=== PATIENT | female | born 1940 | race Caucasian/White ===

== ENCOUNTER → 2016-09-11 | Outpatient (CLI) | payer OTHER | LOC: MMPC 09:00 | DX: R07.81 Pleurodynia (principal) | CPT/HCPCS: 99212; G0463 ==

== ENCOUNTER → 2016-10-17 | Outpatient (CLI) | payer OTHER | LOC: MMPC 09:00 | PROVIDERS: ATTEND Physician Assistant Medical | DX: B02.9 Zoster without complications (principal) | CPT/HCPCS: 99213; G0463 ==

== ENCOUNTER 2016-11-26 17:53 | Inpatient (IN) | payer OTHER ==
[2016-11-26] MEDS ORDERED: NORMAL SALINE 10 ML SYRINGE FLUSH IVP PRN ×2 (18:15→21:09)
[2016-11-26] MEDS ORDERED: Sodium Chloride 0.9% 1,000 ML PRIMARY IV ONE (18:15)
[2016-11-26] MEDS ORDERED: ASPIRIN 81 MG (BABY) CHEWABLE TABLET PO ONE (18:15)
--- NOTE | 2016-11-26 18:18 | EKG ---
[address] [address] Measurements Intervals [place] Rate: 106 P: 78 MO: 146 QRS: 253 QRSD: 100 T: 74 QT: 315 QTc: 377 Interpretive Statements SINUS TACHYCARDIA LEFT ATRIAL ENLARGEMENT [-0.15mV P WAVE IN V1/V2] INDETERMINATE AXIS INCOMPLETE RIGHT BUNDLE BRANCH BLOCK [90+ ms QRS DURATION, TERMINAL R IN V1/V2, 40+ ms S IN I/aVL/V4/V5/V6] POSSIBLE ANTERIOR MYOCARDIAL INFARCTION [30 ms Q WAVE IN V3/V4, OR R < 0.2 mV IN V4], OF INDETERMINATE AGE No previous ECG available for comparison Electronically Signed On 11-27-16 08:04:13 MDT by Sriram Frost MD [id number]
[2016-11-26] MEDS ORDERED: IPRATROPIUM/ALBUTEROL SULFATE 3 ML NEB NEB ONE (18:19)
[2016-11-26 18:42] LABS: BUN/CREATININE RATIO 32.22 (6-20); CALCIUM 8.7 mg/dL (8.7-10.7)
[2016-11-26 18:53] LABS: CREATINE KINASE MB 0.86 NG/ML (0.00-5.00); TROPONIN I 0.048 ng/mL (< 0.040)
[2016-11-26 19:00] LABS: HEMATOCRIT 55.6 % (37.0-47.0); HEMOGLOBIN 18.3 g/dL (12.0-16.0); MEAN CORPUSCULAR HEMOGLOBIN 30.6 PG (27-31); MEAN CORPUSCULAR HGB CONC 32.9 g/dL (33-37); MEAN CORPUSCULAR VOLUME 93 FL (81-99); RED BLOOD COUNT 5.98 10^6/uL (4.20-5.40)
[2016-11-26 19:01] LABS: BASOPHILS # (AUTO) 0.04 10*3/UL; BASOPHILS % (AUTO) 0.5 % (0-1); EOSINOPHILS # (AUTO) 0 10*3/UL; EOSINOPHILS % (AUTO) 0 % (0-8); LYMPHOCYTES # (AUTO) 0.62 10*3/uL; MEAN PLATELET VOLUME 10.6 FL (7.4-12.2); MONOCYTES % (AUTO) 11.5 % (5-15); NEUTROPHILS # (AUTO) 7.01 10*3/UL; NEUTROPHILS % (AUTO) 80.7 % (50-80); PLATELET MORPHOLOGY COMMENT NORMAL MORPHOLOGY (NORM); RBC MORPHOLOGY COMMENT NORMAL MORPHOLOGY (NORM); WBC MORPHOLOGY COMMENT NORMAL MORPHOLOGY (NORM)
[2016-11-26 19:52] LABS: VENOUS PH 7.33 (7.32-7.42)
[2016-11-26] MEDS ORDERED: cefTRIAXone Inj 1 GM in Sodium Chloride 0.9% 100 ML IV SCH ×3 (20:00→23:00)
[2016-11-26] MEDS ORDERED: LIDOCAINE W/ SODIUM BICARB 0.5 ML SYR SUBD PRN ×2 (21:09→22:53)
[2016-11-26] MEDS ORDERED: methylPREDNISolone 125 MG/2 ML VIAL IVP SCH ×2 (21:15→23:00)
[2016-11-26] MEDS ORDERED: HEPARIN 5000 UNIT/1 ML SUBCUT SCH ×2 (21:15→23:00)
--- NOTE | 2016-11-26 21:15 | PDOC ---
History and Physical - History of Present Illness History of Present Illness: This very nice 76-year-old female past medical history significant for hypertension and hypothyroidism comes in complaining of shortness of breath for about 4 days she attributes this to a bronchitis with productive cough that she has. She also was found to have elevated troponin and elevated BNP of around 1000. Her second troponin bumped from 0.48 0.98 she is denying chest pain at present time and does not have a history of coronary artery disease. Past Medical History Medical History: Hypertension, hypothyroidism Surgical History: Appendectomy. Hysterectomy. Lumpectomy Tobacco Use: Former Smoker Substance Use Type: None Alcohol Use: None Medication / Allergies Home Medications: Home Medications Medication Instructions Recorded Confirmed Type Thyroid,Pork [[place] Thyroid] 90 mg PO DAILY 03/14/11 11/26/16 History Amlodipine Besylate 1 tab PO DAILY tab 11/01/14 History [place]-3/Dha/Epa/Fish Oil [Fish Oil 1,000 mg PO DAILY cap 10/17/16 11/26/16 History 1,000 Mg Softgel] Vitamin E Mixed [Vitamin E] 1,000 unit PO DAILY cap 10/17/16 11/26/16 History Allergies/Adverse Reactions: Allergies Allergy/AdvReac Type Severity Reaction Status Date / Time Sulfa (Sulfonamide Allergy Intermediate RASH Verified 11/26/16 17:55 Antibiotics) Review of Systems - Review of Systems All Systems: Reviewed & No Additional Complaints Except as Stated - Respiratory Respiratory: REPORTS: Cough, Sputum, Dyspnea with Exertion - Cardiovascular Cardiovascular: DENIES: Negative System Review, Chest Pain, Edema, Syncope, Palpitations, Orthopnea, Paroxysmal Nocturnal Dyspnea, Other, See HPI - Genitourinary Genitourinary: DENIES: Negative System Review, Pain, Burning, Hematuria, Incontinence, Urgency, Hesitant Stream, Decreased Stream, Nocutria, Discharge, Sexual Dyfunction, Other, See HPI - Musculoskeletal Musculoskeletal: DENIES: Negative System Review, Back Pain, Neck Pain, Swelling , Calf Pain, Muscle Pain, Cramping, Joint Pain - Hands, Joint Pain - Elbows, Joint Pain - Shoulders, Joint Pain - Hips, Joint Pain - Knees, Joint Pain - Feet , AM Stiffness, Other, See HPI - Neurological Neurologic: DENIES: Negative System Review, Headache, Numbness/Paresthesia, Tremors, Weakness, Seizures, Head Trauma, LOC, Dizziness, Confusion, Memory Loss , Difficulty Walking, Incoordination, Other, See HPI Exam - Vitals Vital Signs: Vital Signs Temperature 95.8 F Temperature Source Temporal Artery Scan Pulse Rate [Pulse Oximeter] 106 Pulse Rate 106 Respiratory Rate 24 Blood Pressure [Left Arm] 169/75 Pulse Ox 92 Oxygen Delivery Method Nasal Cannula Height 5 ft 5 in Weight 57.153 kg - General General Appearance: POSITIVE: No Acute Distress, Cooperative - Head Head Exam: POSITIVE: Normal Inspection, Normocephalic, Atraumatic - Eye Eye Exam: POSITIVE: Normal Appearance - Respiratory Additional Respiratory Exam Details: Expiratory wheezes on the left side - Cardiovascular Cardiovascular Exam: POSITIVE: RRR, No Murmur, No Clicks, No Gallops - GI/Abdominal GI/Abdominal Exam: POSITIVE: Normal Bowel Sounds, Non Distended, Soft - Extremities Extremities Exam: POSITIVE: No Clubbing Present, No Edema Present, No Cyanosis Present - Neurological Neurological Exam: POSITIVE: Alert, Oriented x 3 Results - Labs CBC and BMP: 11/26/16 18:17 11/26/16 18:17 Labs - Last 24 Hours: Laboratory Results 11/26/16 11/26/16 11/26/16 Range/Units 18:17 18:18 18:24 WBC 8.69 (4.8-10.8) 10^3/uL RBC 5.98 H (4.20-5.40) 10^6/uL Hgb 18.3 H (12.0-16.0) g/dL Hct 55.6 H (37.0-47.0) % MCV 93 (81-99) FL MCH 30.6 (27-31) PG MCHC 32.9 L (33-37) g/dL RDW Std Deviation 49.3 (39-50) fL RDW Coeff of [facility] 14.6 H (11.5-14.5) % Plt Count 156 (140-350) 10*3/uL MPV 10.6 (7.4-12.2) FL Immature Gran % (Auto) 0.2 (0-5) % Neut % (Auto) 80.7 H (50-80) % Lymph % (Auto) 7.1 L (10-50) % [place] % (Auto) 11.5 (5-15) % Eos % (Auto) 0 (0-8) % Baso % (Auto) 0.5 (0-1) % Immature Gran # (Auto) 0.02 10*3/UL Neut # (Auto) 7.01 10*3/UL Lymph # (Auto) 0.62 10*3/uL [place] # (Auto) 1.0 H (0.3-0.8) 10*3/UL Eos # (Auto) 0 10*3/UL Baso # (Auto) 0.04 10*3/UL WBC Morphology Comment Normal morphology (NORM) Plt Morphology Comment Normal morphology (NORM) RBC Morph Comment Normal morphology (NORM) D-Dimer 0.76 H (0.00-0.59) mg/L VBG pH 7.33 (7.32-7.42) VBG pCO2 50 (45-55) mmHg VBG HCO3 26 (22-26) mmol/L VBG Base Excess 0 (-2-2) MMOL/L Sodium 135 (135-145) meq/L Potassium 3.8 (3.8-5.2) meq/L Chloride 95 L (98-112) meq/L Carbon Dioxide 27 (23-33) meq/L Anion Gap 13 (5-20) BUN 29 H (7-22) mg/dL Creatinine 0.9 (0.50-1.20) mg/dL Estimated GFR (>60 ml/min/1.73m(2)) BUN/Creatinine Ratio 32.22 H (6-20) Glucose 150 H (78-110) mg/dL Calculated Osmolality 288.0 (267-292) mOsm/kg Lactic Acid 1.3 (0.70-2.10) MMOL/L Calcium 8.7 (8.7-10.7) mg/dL Total Bilirubin 0.6 (0.3-1.2) mg/dL AST 51 H (8-39) IU/L ALT 39 (9-52) IU/L Alkaline Phosphatase 55 (38-126) IU/L CK-MB (CK-2) 0.86 (0.00-5.00) NG/ML Troponin I 0.048 H (< 0.040) ng/mL NT-Pro-B Natriuret Pep 1130 H (0-450) PG/ML Total Protein 7.0 (6.1-8.0) g/dL Albumin 4.0 (3.5-4.8) g/dL Globulin 3.1 (2.50-4.10) g/dL Albumin/Globulin Ratio 1.20 L (1.3-2.0) mg/g Assessment and Plan - Patient Problems (1) COPD (chronic obstructive pulmonary disease) Current Visit: Yes Status: Acute Comment: abx,steroids duonebs. no pe no pneumonia on ct as per Dr. Jiménez (2) Elevated troponin I level Current Visit: Yes Status: Acute Comment: Rule out. Initial EKG reviewed second one done with T-wave inversions in leads V4 and V5 compared to previous EKG troponin up to 0.049-0.[address] Albarran which accepted in transfer for further evaluation (3) Elevated brain natriuretic peptide (BNP) level Current Visit: Yes Status: Acute Comment: lasix 40 iv bid echo in am
[2016-11-26] MEDS ORDERED: cefTRIAXone Inj 1 GM in Lidocaine Inj 1% 2.1 ML IM SCH (23:00)
[2016-11-26] MEDS ORDERED: IPRATROPIUM/ALBUTEROL SULFATE 3 ML NEB NEB PRN (23:06)
[2016-11-27 01:13] VITALS: RESP 24; TEMP 97.4
[2016-11-27] MEDS ORDERED: ATORVASTATIN 40 MG TABLET PO ONE (01:42)
[2016-11-27] MEDS ORDERED: Metoprolol TARTRATE Tab 25 MG TAB PO ONE (01:42)
[2016-11-27] MEDS ORDERED: ASPIRIN 325 MG TABLET PO ONE (01:42)
--- NOTE | 2016-11-27 01:42 | EKG ---
[address] [place] [address] Measurements Intervals [place] Rate: 77 P: 78 [place]: 156 QRS: 81 QRSD: 90 T: 79 QT: 391 QTc: 423 Interpretive Statements SINUS RHYTHM POSSIBLE LEFT ATRIAL ENLARGEMENT [-0.1mV P WAVE IN V1/V2] POSSIBLE RIGHT VENTRICULAR CONDUCTION DELAY [RSR (QR) IN V1/V2] POSSIBLE ANTERIOR MYOCARDIAL INFARCTION [30 ms Q WAVE IN V3/V4, OR R < 0.2 mV IN V4], OF INDETERMINATE AGE MODERATE T-WAVE ABNORMALITY, CONSIDER LATERAL ISCHEMIA [-0.1+ mV T WAVE IN I/aVL/V5/V6] Compared to ECG 11/26/2016 18:11:13 T-wave abnormality now present Possible ischemia now present Sinus tachycardia no longer present Indeterminate axis no longer present Incomplete right bundle-branch block no longer present Myocardial infarct finding still present Electronically Signed On 11-27-16 08:04:48 MDT by Sriram Frost MD [id number]
--- NOTE | 2016-11-27 01:45 | DCSUMMARY ---
Hospitalization Summary Hospital Course: Please see my H&P patient was admitted and transferred for non-STEMI/ Exam - Vitals Vital Signs: Vital Signs Temperature 97.4 F Temperature Source Tympanic Pulse Rate [Pulse Oximeter] 77 Pulse Rate 81 Respiratory Rate 24 Blood Pressure [Left Arm] 154/73 Blood Pressure 140/71 Pulse Ox 93 Oxygen Flow Rate 5 Oxygen Delivery Method Nasal Cannula Height 5 ft 5 in Weight 57.833 kg Patient Problems - Patient Problem List (1) COPD (chronic obstructive pulmonary disease) Current Visit: Yes Status: Acute (2) Elevated troponin I level Current Visit: Yes Status: Acute (3) Elevated brain natriuretic peptide (BNP) level Current Visit: Yes Status: Acute
[2016-11-27] MEDS ORDERED: methylPREDNISolone 40 MG/1 ML VIAL IVP SCH ×2 (03:00→06:00)
--- NOTE | 2016-11-27 05:45 | PDOC ---
General Adult HPI - General Chief Complaint: Respiratory Complaint Stated Complaint: cough, shortness of breath, chest discomfort Date Seen by Provider: 11/26/16 Time Seen by Provider: 18:05 Source: POSITIVE: Patient, Spouse Exam Limitations: POSITIVE: No limitations Nurse's Notes Reviewed & Considered: Yes - History of Present Illness Initial Comment: The patient is a 76 year old female. She presents to the emergency room complaining of a cough for the past 4 days with associated shortness of breath. She states that "I feel awful". Patient has a history of COPD. She also states that "I feel like there is a band around my chest cold. Patient has a past history of smoking but states she has not smoked for 25 years. She uses an Advair inhaler at home. She also has a history of hypertension. She denies any known cardiac problems. Have you received a tetanus shot in the past 10 years?: Yes Body Location Affected: REPORTS: Chest (Cough, shortness of breath, chest discomfort) Timing: REPORTS: Constant Duration: >24 hours (4 days) Severity: Moderate Quality: REPORTS: "Pain" ("Like a band around my chest ") Context: REPORTS: None Modifying Factors: improves with: Coughing Similar Symptoms Previously: No Recent Care Received: REPORTS: Denies Any Prior Injuries Related to Current Complaint?: No - Patient Home Medications Home Medications: Home Medications Thyroid,Pork [[place] Thyroid] 90 mg PO DAILY 03/14/11 Amlodipine Besylate 1 tab PO DAILY tab 11/01/14 [place]-3/Dha/Epa/Fish Oil [Fish Oil 1,000 Mg Softgel] 1,000 mg PO DAILY cap Vitamin E Mixed [Vitamin E] 1,000 unit PO DAILY cap 10/17/16 - Patient Allergies Allergies/Adverse Reactions: Allergies Allergy/AdvReac Type Severity Reaction Status Date / Time Sulfa (Sulfonamide Allergy Intermediate RASH Verified 11/26/16 17:55 Antibiotics) Past Medical History - heen HEENT History: Cataracts Additional HEENT History: partial upper denture Cardiovascular History: Denies History Respiratory History: COPD, Shortness of Breath Gastrointestinal History: Denies History Genitourinary History: Denies History Endocrine History: Hypothyroidism Musculoskeletal History: Arthritis Neurological History: CVA Additional Neurological History: minor stroke in 2016 Blood Disorders: Denies History Psychiatric History: Denies History Female Reproductive History: Hysterectomy Obstetrical History: Denies History Cancer History: Denies History In Past Year Been Physically Harmed or Verbally Threatened: No History of MDRO: No Tobacco Use: Former Smoker Alcohol Use: Occasionally Type of alcohol normally used: Wine How much alcohol do you normally drink a day?: couple glasses Substance Use Type: None Previous Surgical History: Yes Type / Date of Surgery: hysterectomy, appendectomy, thyroidectomy, joint finger replacements in left hand Anesthesia Reactions: Yes (MOTION SICKNESS) Malignant Hyperthermia: No Family History of Malignant Hyperthermia: No Significant Family History: Cancer, Other (please comment) Additional Family History: abdominal embolism Past Medical History Reviewed: Reviewed - No Changes ROS - Limitations ROS Limitations: No Limitations Constitution: REPORTS: Weakness Cardiovascular: REPORTS: Chest Pain Respiratory: REPORTS: Cough Productive (Loose cough, productive of mucopurulent sputum), Shortness Of Breath Neurological: REPORTS: Denies Neuro Symptoms Gastrointestinal: REPORTS: Denies GI Symptoms Endocrine: REPORTS: Denies Symptoms Musculoskeletal: REPORTS: Denies MS Symptoms Genitourinary: REPORTS: Denies Symptoms Eyes: REPORTS: Denies Symptoms ENT: REPORTS: Denies Symptoms Skin: REPORTS: Denies Skin Symptoms Lympathic: REPORTS: Denies Lympathic Symptoms Immunologic: POSITIVE: Denies Symptoms Psychiatric: POSITIVE: Denies Psych Symptoms General Adult Exam - General Appearance General Appearance: POSITIVE: Alert, Cooperative, No Evidence of Trauma, Mild Distress (Due to dyspnea). NEGATIVE: No Acute Distress - HEENT HEENT: POSITIVE: Head Inspection Nml, Eyes Inspection Nml, Ears Inspection Nml, Nose Inspection Nml, Oral/Dental Inspect. Nml, Pharynx Inspect. Nml, PERRL, EOMI - Pupils Pupil Size: 3 mm: Bilateral (PERRLA) - Neck Neck: POSITIVE: Normal Inspection, Thyroid Normal - Respiratory Respiratory: POSITIVE: Chest Non-Tender, Rhonchi - Cardiovascular Cardiovascular: POSITIVE: Regular Rate & Rhythm, No Murmur, No Gallop, PMI Normal, Tachycardia (116/m) Peripheral Pulses: Radial (R): 2+, Radial (L): 2+ - Abdomen Abdomen: Soft: (All Quadrants), Normal Bowel Sounds: (All Quadrants), Denies Tenderness: (All Quadrants), No Splenomegaly: (All Quadrants), No Hepatomegaly: (All Quadrants), No Guarding: (All Quadrants), No Rebound: (All Quadrants), No Palpable Pulse: (All Quadrants), No Palpabale Mass: (All Quadrants), No Distention: (All Quadrants), No Rigidity: (All Quadrants) - Back Back: POSITIVE: Normal Inspection - Skin Skin: POSITIVE: Normal Color, Warm, Dry, No Rash - Extremities Extremity: Non-Tender: (All Extremities), Normal ROM: (All Extremities), Normal Inspection: (All Extremities) - Neurological / Psychological Neurological: POSITIVE: Affect Apporpriate, Oriented X3, electrical calibrator Normal As Tested, Motor Normal, Sensation Normal Images - Complete Complete: 1 - Some chest discomfort "like a band". General Adult Progress - Results Reviewed by me Xrays/CTs/US Reviewed by me: Yes Discussed with Radiologist: Yes Radiology Findings: Chest x-ray shows COPD; no definite infiltrates. CTA of chest read by radiologist as showing no pulmonary emboli. Lab Results Reviewed: Yes (troponin slightly elevated at 0.048; BNP EP 1130) Lab Results:: Laboratory Results 11/26/16 11/26/16 11/26/16 Range/Units 18:17 18:18 18:24 WBC 8.69 (4.8-10.8) 10^3/uL RBC 5.98 H (4.20-5.40) 10^6/uL Hgb 18.3 H (12.0-16.0) g/dL Hct 55.6 H (37.0-47.0) % MCV 93 (81-99) FL MCH 30.6 (27-31) PG MCHC 32.9 L (33-37) g/dL RDW Std Deviation 49.3 (39-50) fL RDW Coeff of [facility] 14.6 H (11.5-14.5) % Plt Count 156 (140-350) 10*3/uL MPV 10.6 (7.4-12.2) FL Immature Gran % (Auto) 0.2 (0-5) % Neut % (Auto) 80.7 H (50-80) % Lymph % (Auto) 7.1 L (10-50) % [place] % (Auto) 11.5 (5-15) % Eos % (Auto) 0 (0-8) % Baso % (Auto) 0.5 (0-1) % Immature Gran # (Auto) 0.02 10*3/UL Neut # (Auto) 7.01 10*3/UL Lymph # (Auto) 0.62 10*3/uL [place] # (Auto) 1.0 H (0.3-0.8) 10*3/UL Eos # (Auto) 0 10*3/UL Baso # (Auto) 0.04 10*3/UL WBC Morphology Comment Normal morphology (NORM) Plt Morphology Comment Normal morphology (NORM) RBC Morph Comment Normal morphology (NORM) D-Dimer 0.76 H (0.00-0.59) mg/L VBG pH 7.33 (7.32-7.42) VBG pCO2 50 (45-55) mmHg VBG HCO3 26 (22-26) mmol/L VBG Base Excess 0 (-2-2) MMOL/L Sodium 135 (135-145) meq/L Potassium 3.8 (3.8-5.2) meq/L Chloride 95 L (98-112) meq/L Carbon Dioxide 27 (23-33) meq/L Anion Gap 13 (5-20) BUN 29 H (7-22) mg/dL Creatinine 0.9 (0.50-1.20) mg/dL Estimated GFR (>60 ml/min/1.73m(2)) BUN/Creatinine Ratio 32.22 H (6-20) Glucose 150 H (78-110) mg/dL Calculated Osmolality 288.0 (267-292) mOsm/kg Lactic Acid 1.3 (0.70-2.10) MMOL/L Calcium 8.7 (8.7-10.7) mg/dL Total Bilirubin 0.6 (0.3-1.2) mg/dL AST 51 H (8-39) IU/L ALT 39 (9-52) IU/L Alkaline Phosphatase 55 (38-126) IU/L CK-MB (CK-2) 0.86 (0.00-5.00) NG/ML Troponin I 0.048 H (< 0.040) ng/mL NT-Pro-B Natriuret Pep 1130 H (0-450) PG/ML Total Protein 7.0 (6.1-8.0) g/dL Albumin 4.0 (3.5-4.8) g/dL Globulin 3.1 (2.50-4.10) g/dL Albumin/Globulin Ratio 1.20 L (1.3-2.0) mg/g EKG Interpreted/Reviewed By Me:: Yes (sinus tachycardia) EKG Interpretation:: POSITIVE: Normal Intervals, Normal [place], Normal QRS, Normal ST/T, Abnormal EKG (Sinus tachycardia at 106/m). NEGATIVE: Normal Sinus Rhythm, Normal Rate - Patient's Progress Pain Medication Addressed: POSITIVE: No (Patient's chest discomfort resolved shortly after DuoNeb treatment and supplemental oxygen.) School/Work Release Addressed: POSITIVE: Not Applicable Re-Examine Time: 20:40 Re-Examine Comment: Patient achieved marked relief with oxygen supplementation and following DuoNeb treatment. Shortness of breath and cough improved. Her chest complaints also resolved. Patient advised that she should be admitted for further evaluation, especially in view of her slightly elevated troponin and her elevated BNP, both which most likely due to to a pulmonary origin. Status: POSITIVE: Improved, Re-Examined Antibiotics Given: No Quality Measure Initiative: CP/AMI: POSITIVE: EKG, ASA - Consult Consult (If Yes, Name of Consulting MD & Time Called): Yes (Dr. Johnson, hospitalist, 2029) Consulting MD will see pt:: POSITIVE: [facility] [place] Admit Counseled: POSITIVE: Patient, Family, RE: Lab Results, RE: Radiology Results, RE : DX, RE: Need for F/U Patient Care Time - Estimated PCT Patient Care Time (In Minutes): 60 Vital Signs - VS Reviewed Vital Signs Reviewed: Yes Discharge Clinical Impression: Elevated brain natriuretic peptide (BNP) level, Elevated troponin I level, COPD (chronic obstructive pulmonary disease) Discharge Disposition: Admit to Inpatient Condition: Stable Date Decision to Admit to Inpatient: 11/26/16 Time Decision to Admit to Inpatient: 20:30
--- NOTE | 2016-11-27 06:32 | DI ---
CT CTA CHEST NONCORONARY W/WO,11/26/2016 7:04 PM: Clinical History: Chest pain and elevated d-dimer. Previous Exam: None at this facility. Findings: Multiple helically acquired CT images are obtained through the chest following a CT angiogram protoco l, and demonstrate diffuse COPD. The pulmonary arteries are normal. The aorta is unremarkable. There is no infiltrate nor effusion. Carotids are unremarkable. The upper abdomen is within normal limits. Mild subsegmental atelectasis is noted in the lung bases. Skeletal structures are unremarkable. Impression: Diffuse COPD otherwise unremarkable. No evidence of pulmonary embolism.
[2016-11-27] MEDS ORDERED: FUROSEMIDE 10 MG/1 ML - 2 ML VIAL IVP SCH (07:00)
[2016-11-27] MEDS ORDERED: IPRATROPIUM/ALBUTEROL SULFATE 3 ML NEB NEB SCH (07:00)
[2016-11-27] MEDS ORDERED: FUROSEMIDE 10 MG/1 ML - 4 ML IVP SCH (07:00)
[2016-11-27] MEDS ORDERED: AmLODIPine Tab 2.5 MG TABLET PO SCH (09:00)
--- NOTE | 2016-11-27 09:06 | DI ---
XR CXR 2VW PA/LAT,11/26/2016 6:16 PM: Clinical History: Cough and dyspnea Previous Exam: None at this facility. Findings: PA and lateral views of the chest are obtained, and demonstrate diffuse COPD. There is gentle dextroscoliosis of the midthoracic spine. There is no infiltrate nor effusion. Skeletal structures are unremarkable. Impression: Mild diffuse COPD otherwise unremarkable.
== END 2016-11-27 02:10 | disposition short-term general hospital (02) | DRG 282 ==
LOC: ER 17:53 → MED/SURG 21:07
PROVIDERS: ADMIT Internal Medicine; ATTEND Internal Medicine
DX: I21.4 Non-ST elevation (NSTEMI) myocardial infarction (principal); R06.02 Shortness of breath; R05 Cough; R07.89 Other chest pain; I20.9 Angina pectoris, unspecified; J44.9 Chronic obstructive pulmonary disease, unspecified; I10 Essential (primary) hypertension; E03.9 Hypothyroidism, unspecified
CPT/HCPCS: 36415 ×2; 71020; 71275; 80053; 82553; 82803; 83605; 83880; 84484; 85025; 85379; 87040; 93005; 93010; 94640; 99285 ×2; J7620; J0696; J1644; J2920; J7030; J7050